=== PATIENT | female | born 1990 | race Caucasian/White ===

== ENCOUNTER 2017-09-14 01:49 | Emergency (ER) | payer SELFPAY ==
[~2017-09-14] VITALS: Ht 170.2 cm; Wt 68.0 kg
--- NOTE | 2017-09-14 02:00 | NUR ---
To bed 3 a 26 yo female bbra 76 for etoh intoxication. Upon arrival to er, patient awake, alert, oriented x2, vss, nad noted. breathing even and unlabored. nondiaphoretic. gowned. comfort and safety measures in place. cousin at bedside.
[2017-09-14] MEDS ORDERED: IBUPROFEN 400 MG TABLET ONE (04:20)
--- NOTE | 2017-09-14 04:29 | NUR ---
IV removed. Catheter intact and site benign. Pressure and 4x4 applied to site. No bleeding noted. Patient discharged to home in stable condition. Written and verbal after care instructions given. Patient verbalizes understanding of instruction. Pt ambulatory with a steady gait.
[2017-09-14] MEDS ORDERED: IBUPROFEN 400 MG TABLET PO ONE ×2 (04:30→05:00)
[2017-09-14 04:31] VITALS: BP 128/76
== END 2017-09-14 04:31 | disposition home or self-care (01) ==
LOC: ER 01:50
DX: F10.129 Alcohol abuse with intoxication, unspecified (principal); R79.89 Other specified abnormal findings of blood chemistry; N83.209 Unspecified ovarian cyst, unspecified side
CPT/HCPCS: 82962-TC; A4606; Z7610